=== PATIENT | female | born 1985 ===

== ENCOUNTER 2017-01-11 06:03 | Day surgery (SDC) | payer BC, OTHER ==
[2017-01-11 06:37] VITALS: BMI 23.0
[2017-01-11 06:51] LABS: HEMATOCRIT 36.7 % (34.0-47.0); MEAN CELL VOLUME 88.2 fl (81.0-99.0); MEAN CORPUSCULAR HEMOGLOBIN 29.6 pg (27.0-31.0); MEAN CORPUSCULAR HGB CONC 33.6 g/dL (33.0-37.0); RED CELL DISTRIBUTION WIDTH 13.9 % (11.5-14.5)
[2017-01-11] MEDS ORDERED: Neostigmine Methylsulfate 2 MG/2 ML ML IV ONE (06:59)
[2017-01-11] MEDS ORDERED: ePHEDrine 50 mg/ml Inj ONE (06:59)
[2017-01-11] MEDS ORDERED: Midazolam 2 MG/2 ML VIAL ONE (06:59)
[2017-01-11] MEDS ORDERED: Rocuronium 10 mg/ml (5 ml) ONE (06:59)
[2017-01-11] MEDS ORDERED: Succinylcholine 200 mg/10 ml Inj IV ONE (06:59)
[2017-01-11] MEDS ORDERED: Neostigmine Methylsulfate 3mg/3ml Syringe IV ONE (06:59)
[2017-01-11] MEDS ORDERED: Lidocaine 4% (Laryng-O-Jet) Kit MM ONE (06:59)
[2017-01-11] MEDS ORDERED: Propofol 10 mg/ml Inj (20 ML) ONE (06:59)
[2017-01-11] MEDS ORDERED: Bupivacaine 0.5% Inj(30mL) ONE (07:24)
[2017-01-11] MEDS ORDERED: Lactated Ringer's 1,000 ML IV ONE ×2 (08:55→09:11)
[2017-01-11] MEDS ORDERED: HYDROmorphone 0.5 mg/0.5 ml ISec IVP PRN (09:53)
[2017-01-11] MEDS ORDERED: Lactated Ringer's 1,000 ML IV SCH (10:00)
[2017-01-11] MEDS ORDERED: Oxycodone/Acetaminophen 5/325 mg Tab PO PRN (10:11)
[2017-01-11 10:44] VITALS: O2SAT 100
[2017-01-11 12:32] VITALS: RESP 18
[2017-01-11] MEDS ORDERED: Oxycodone/Acetaminophen 5/325 mg Tab PO ONE (14:05)
[2017-01-11 16:19] VITALS: TEMP 98.4
[2017-01-11 17:45] VITALS: BP 120/83; PULSE 82
--- NOTE | 2017-01-30 08:29 | OP ---
PROCEDURE DATE: 01/11/2017 SURGEON: Luther Fournier M.D. SOFTWARE QUALITY ASSURANCE ENGINEER: Dr. Richard Brar. PROCEDURE PERFORMED: Cystoscopy, bilateral ureteral catheterization, injection of dye, diagnostic hy steroscopy and D and C, robotic laparoscopy, excision of endometriosis, right ureterolysis and excisi on of left perirectal lesions, dictated by general surgery, Dr. Brar, who will dictate separately. ANESTHESIA: General endotracheal. ESTIMATED BLOOD LOSS: Minimal. COMPLICATIONS: None. DESCRIPTION OF PROCEDURE: After adequate anesthesia was obtained, the patient was placed in the dors al lithotomy position. She was prepped and draped, the surgeon gowned and gloved. At this point, at tention was in the vaginal area where a cystoscope was inserted into the bladder. The bladder appear ed to be normal. Both ureters were cannulated, utilizing a 5-[place] stent and 0.5 mL was injected of IC-Green into each ureter. At this point, the cystoscope was removed and attention was on the vagin al area where the anterior lip of the cervix was grasped. The cervix was dilated and a hysteroscope was inserted into the uterine cavity. The cavity was visualized. The patient had a prior history of a suggestion of having a T-shaped uterus. It was my impression that the cavity was wide enough, did not appear to be T-shaped but it did have a slight restriction mid part, but it was not pathological or caused by adhesions. The cavity was overall free of any adhesions. At this point, a gentle D an d C was performed obtaining a small amount of endometrial tissue and a uterine manipulator was placed in the uterus. At this point, attention was on the abdomen where an incision was made on the umbili cus with the open laparoscopy technique. A blunt trocar was inserted and the abdomen was insufflated and under direct visualization, left lower quadrant, left upper quadrant and left mid quadrant troca rs were inserted. The da Hiro robot was brought into the field and the instruments were introduced u nder direct visualization. At this point, an area of endometriosis was seen in the posterior cervica l area. This was excised with a wide excision. Additionally, there was an area on the right pelvic s idewall, which was suggestive of endometriosis. This was overlying the ureter, which was identified u tilizing fluorescence. The peritoneum was grasped right on top of the ureter and the retroperitoneal space was entered. The ureter was then lateralizing and with great care a window was created and ope angel up gentle in a [id number] fashion and an area of peritoneum containing endometriosis was excise d and sent to pathology. Additionally, there were 2 additional areas that appeared to be involved on the right and left side of the sigmoid. Dr. Brar excised those 2 areas. This was completely unco mplicated. At this point, it was checked for hemostasis and appeared to be excellent. The pelvis wa s irrigated. All the instruments were removed. The robot was undocked. The abdomen was desufflated . The fascia was closed with 0 PDS and the skin incisions were closed with 4-0 Monocryl. At the end of the procedure, all tapes and instrument counts were correct. The patient tolerated the procedure well and was taken to recovery room in excellent condition. Luther Fournier MD cc: [id number] TT: 01/30/2017 08:29:17 ri
== END 2017-01-11 17:50 | disposition home or self-care (01) ==
LOC: H.OPSURG 06:03
PROVIDERS: ATTEND Obstetrics & Gynecology Reproductive Endocrinology
DX: N80.3 Endometriosis of pelvic peritoneum (principal); N80.0 Endometriosis of uterus; N80.8 Other endometriosis
CPT/HCPCS: 36415; 50949; 52005; 58558; 58662; 85027; 86850; 86900; 88305; J0330; J0690; J1170; J2001; J2250; J2704; J2710; J3010; J7030; J7040; J7120